=== PATIENT | male | born 1950 | race Caucasian/White ===

== ENCOUNTER 2018-07-25 11:35 | Inpatient (IN) | payer MEDICARE ==
[~2018-07-25] VITALS: Ht 180.3 cm; Wt 112.2 kg
[~2018-07-25 11:35] MED LIST: BACITRACIN 50,000 UNIT ONE; BUPIVACAINE 0.25% ONE; BUPIVACAINE/PF-EPI 0.5% 1:200K ONE; CEFAZOLIN 1,000 MG ONE; DEXAMETHASONE 4 MG/ML, 1ML ONE; FENTANYL PF 250 MCG/5ML ONE; MIDAZOLAM 1 MG/ML, 2ML ONE; ONDANSETRON 2MG/ML, 2ML ONE; PROPOFOL 10 MG/ML, 20ML ONE; SUCCINYLCHOLINE 20 MG/ML, 10ML ONE; THROMBIN 5,000 UNIT VIAL TP ONE
[2018-07-25] MEDS ORDERED: LACTATED RINGERS 1,000 ML IV SCH (12:06)
[2018-07-25] MEDS ORDERED: NONE PER PT (12:11)
[2018-07-25 12:16] VITALS: BP 131/88
[2018-07-25] MEDS ORDERED: PLEASE ENTER HEIGHT AND WEIGHT MC SCH (12:30)
[2018-07-25] MEDS ORDERED: ACETAMINOPHEN 500 MG TABLET PO ONE (12:30)
[2018-07-25] MEDS ORDERED: GABAPENTIN 300 MG CAPSULE PO ONE (12:30)
[2018-07-25] MEDS ORDERED: ONDANSETRON ODT 8 MG PO ONE (12:30)
[2018-07-25] MEDS ORDERED: THYR16.2 PO (12:54)
[2018-07-25 13:16] LABS: INTERNATIONAL NORMALIZED RATIO 1.29 (0.93-1.1); PROTHROMBIN TIME 13.3 Seconds (9.6-11.5)
[2018-07-25] MEDS ORDERED: ROCURONIUM 10 MG/ML,10ML ONE (13:21)
[2018-07-25] MEDS ORDERED: LIDOCAINE-MPF 2% ,5ML ONE (13:21)
[2018-07-25] MEDS ORDERED: MIDAZOLAM 1 MG/ML, 2ML IV PRN (14:30)
[2018-07-25] MEDS ORDERED: MEPERIDINE/PF 25MG/0.5ML IVPush PRN (14:30)
[2018-07-25] MEDS ORDERED: hydrALAzine 20 MG/ML, 1ML IV PRN (14:30)
[2018-07-25] MEDS ORDERED: LORazepam 2 MG/ML, 1ML IVPush PRN (14:30)
[2018-07-25] MEDS ORDERED: ALBUTEROL SULFATE 2.5 MG/3 ML NPPB PRN (14:30)
[2018-07-25] MEDS ORDERED: METOCLOPRAMIDE 5 MG/ML, 2ML IV PRN (14:30)
[2018-07-25] MEDS ORDERED: HYDROmorphone 1 MG/ML, 1ML IV PRN (14:30)
[2018-07-25] MEDS ORDERED: DIAZEPAM 5 MG/ML, 2ML IVPush PRN (14:30)
[2018-07-25] MEDS ORDERED: FENTANYL PF 100 MCG/2ML IV PRN (14:30)
[2018-07-25] MEDS ORDERED: MORPHINE SULFATE 4 MG/ML, 1ML IVPush PRN (14:30)
[2018-07-25] MEDS ORDERED: OXYcodone 5 MG/5 ML ORAL.SOL UDC PO PRN (14:30)
[2018-07-25] MEDS ORDERED: FENTANYL PF 100 MCG/2ML ONE (15:07)
[2018-07-25] MEDS ORDERED: FENTANYL PF 100 MCG/2ML EPIDPUSH ONE (15:12)
[2018-07-25] MEDS ORDERED: BUPIVACAINE/PF 0.25% EPIDPUSH ONE (15:13)
[2018-07-25] MEDS ORDERED: OXYcodone 5 MG/5 ML ORAL.SOL UDC ONE (15:56)
[2018-07-25] MEDS ORDERED: MEPERIDINE/PF 50 MG/ML ONE (15:56)
[2018-07-25] MEDS ORDERED: LABETALOL 20 MG/4 ML ONE (16:12)
[2018-07-25] MEDS: LABETALOL 5MG/ML, 20ML IV PRN ×2 (16:14→16:24)
[2018-07-25 19:12] VITALS: BP 146/93
[2018-07-25] MEDS ORDERED: HYDROcodone/APAP 5/325 TABLET PO PRN (19:30)
[2018-07-25] MEDS ORDERED: DIPHENHYDRAMINE 50 MG CAPSULE PO PRN (19:30)
[2018-07-25] MEDS ORDERED: BISACODYL 10 MG SUPP PR PRN (19:30)
[2018-07-25] MEDS ORDERED: morphine SULFATE 10 MG/ML, 1ML IV PRN (19:30)
[2018-07-25] MEDS ORDERED: PROMETHAZINE 25 MG/ML, 1ML IM PRN (19:30)
[2018-07-25] MEDS ORDERED: LABETALOL 20 MG/4 ML IV PRN (19:30)
[2018-07-25] MEDS ORDERED: DIPHENHYDRAMINE 50 MG/ML, 1ML IM PRN (19:30)
[2018-07-25] MEDS ORDERED: MAGNESIUM HYDROXIDE 8%, 30ML UDC PO PRN (19:30)
[2018-07-25] MEDS ORDERED: ONDANSETRON 2MG/ML, 2ML IV PRN (19:30)
[2018-07-25] MEDS ORDERED: ZOLPIDEM 5MG TABLET PO PRN (21:00)
[2018-07-25] MEDS: METHOCARBAMOL 750 MG TABLET PO PRN (22:33)
[2018-07-25] MEDS: CEFAZOLIN PMX 1GM/50ML 50 ML IVPB SCH (22:33)
[2018-07-26 00:25] VITALS: BP 134/76
[2018-07-26] MEDS: D5%-0.9% NACL+KCL 20MEQ 1,000 ML IV SCH ×3 (02:05→20:00)
[2018-07-26 07:25] VITALS: BP 114/73
[2018-07-26] MEDS: CEFAZOLIN PMX 1GM/50ML 50 ML IVPB SCH (07:37)
[2018-07-26] MEDS: THYROID 30 MG TABLET PO SCH (07:38)
[2018-07-26] MEDS: METHOCARBAMOL 750 MG TABLET PO PRN ×2 (07:41→22:07)
[2018-07-26] MEDS: SENNA/DOCUSATE TABLET PO SCH (08:46)
[2018-07-26 14:00] VITALS: BP 118/74
[2018-07-26 18:34] VITALS: BP 115/76
[2018-07-26] MEDS: DOXYCYCLINE 100MG TABLET PO SCH (22:08)
[2018-07-27 00:16] VITALS: BP 115/66
[2018-07-27] MEDS: D5%-0.9% NACL+KCL 20MEQ 1,000 ML IV SCH ×2 (06:00→16:19)
[2018-07-27] MEDS: THYROID 30 MG TABLET PO SCH (06:59)
[2018-07-27 07:48] VITALS: BP 106/69
[2018-07-27] MEDS: SENNA/DOCUSATE TABLET PO SCH (08:17)
[2018-07-27] MEDS: DOXYCYCLINE 100MG TABLET PO SCH ×2 (08:18→19:53)
[2018-07-27] MEDS: OXYcodone/APAP 5/325MG TABLET PO PRN ×2 (10:24→20:27)
[2018-07-27] MEDS: METHOCARBAMOL 750 MG TABLET PO PRN (15:52)
[2018-07-27 15:55] VITALS: BP 113/72
[2018-07-27] MEDS ORDERED: CALCIUM CARBONATE 500 MG TAB.CHEW PO PRN (19:30)
[2018-07-27] MEDS ORDERED: MAGNESIUM CITRATE 300ML ORAL SOL PO PRN (19:30)
[2018-07-27 19:45] VITALS: BP 123/75
[2018-07-27] MEDS: FAMOTIDINE 20 MG TABLET PO SCH (19:53)
[2018-07-28] MEDS: D5%-0.9% NACL+KCL 20MEQ 1,000 ML IV SCH ×2 (01:04→12:00)
[2018-07-28 02:00] VITALS: BP 106/73
[2018-07-28] MEDS: THYROID 30 MG TABLET PO SCH (05:24)
[2018-07-28 07:28] VITALS: BP 115/78
[2018-07-28] MEDS: SENNA/DOCUSATE TABLET PO SCH (08:36)
[2018-07-28] MEDS: DOXYCYCLINE 100MG TABLET PO SCH (08:36)
[2018-07-28] MEDS: FAMOTIDINE 20 MG TABLET PO SCH (08:36)
[2018-07-28 13:36] VITALS: BP 126/79
[2018-07-28] MEDS ORDERED: OXYC-302 PO (16:22)
[2018-07-28] MEDS ORDERED: METH750T2 PO (16:23)
[2018-07-28] MEDS ORDERED: DOXY100C15 PO (16:24)
[2018-07-28] MEDS: OXYcodone/APAP 5/325MG TABLET PO PRN (16:41)
[2018-07-28] MEDS: METHOCARBAMOL 750 MG TABLET PO PRN (16:41)
== END 2018-07-28 17:00 | disposition home or self-care (01) | DRG 516 ==
LOC: OUT 11:35 → 4NOR 17:30 → OUT 17:35 → 4NOR 17:35
PROVIDERS: ADMIT Neurological Surgery; ATTEND Neurological Surgery
PROC: 01NR0ZZ Release Sacral Nerve, Open Approach (ICD-10-PCS; 2018-07-25)
PROC: 00HU03Z Insertion of Infusion Device into Spinal Canal, Open Approach (ICD-10-PCS; 2018-07-25)
PROC: 3E0R3BZ Introduction of Anesthetic Agent into Spinal Canal, Percutaneous Approach (ICD-10-PCS; 2018-07-25)
PROC: 01NB0ZZ Release Lumbar Nerve, Open Approach (ICD-10-PCS; principal; 2018-07-25 16:00)
DX: M48.07 Spinal stenosis, lumbosacral region (principal); D68.69 Other thrombophilia; M51.16 Intervertebral disc disorders with radiculopathy, lumbar region; G47.33 Obstructive sleep apnea (adult) (pediatric); B19.20 Unspecified viral hepatitis C without hepatic coma; M48.062 Spinal stenosis, lumbar region with neurogenic claudication; E03.9 Hypothyroidism, unspecified; M51.17 Intervertebral disc disorders with radiculopathy, lumbosacral region; Z91.041 Radiographic dye allergy status; Z91.011 Allergy to milk products; Z88.0 Allergy status to penicillin; Z91.018 Allergy to other foods; Z91.048 Other nonmedicinal substance allergy status
CPT/HCPCS: 36415; 72100; 85610; 85730; G0378; J0690; J1100; J2175; J2250; J2405; J2704; J3010; J3490; Q0162; J0330; J3480; J7120